=== PATIENT | male | born 1980 | race American Indian/Alaskan Native ===

== ENCOUNTER 2016-10-21 16:15 | Emergency (ER) | payer OTHER ==
--- NOTE | 2016-10-21 17:03 | Emergency Department Report ---
Chief Complaint: Fever Stated Complaint: LIGHT HEADED/ESTEFANI/BODY PAIN Time Seen by Provider: 10/21/16 17:01 - HPI History of Present Illness: PT states he feels like he has the flu x 3 days - ROS Review of Systems: + bodyaches -dysuria + darker urine - abd pain + productive cough - Exam Physical Exam: + wheeze to R no exudative pharyngitis MSE screening note: Focused history and physical exam performed. Due to findings the following was ordered: labs, xr ED Disposition for MSE Condition: Stable
[2016-10-21 17:05] VITALS: BP 124/91
[2016-10-21 20:01] LABS: Basophils % (Auto) 0.6 % (0.0-1.8); Eosinophils % (Auto) 1.8 % (0.0-4.3); Hematocrit 44.5 % (35.5-45.6); Hemoglobin 14.5 gm/dl (11.8-15.2); Mean Corpuscular HGB Conc 33 % (32-34); Mean Corpuscular Hemoglobin 29 pg (28-32); Mean Corpuscular Volume 89 fl (84-94); Platelet Count 239 K/mm3 (140-440); Red Blood Count 4.99 M/mm3 (3.65-5.03); Red Cell Distribution Width 12.5 % (13.2-15.2); White Blood Count 7.6 K/mm3 (4.5-11.0)
[2016-10-21] MEDS ORDERED: DELTASONE PO ONE (20:01)
[2016-10-21] MEDS ORDERED: TYLENOL/CODEINE PO ONE (20:01)
--- NOTE | 2016-10-21 20:05 | Emergency Department Report ---
HPI - General Chief Complaint: Upper Respiratory Infection Time Seen by Provider: 10/21/16 17:01 - HPI HPI: Pt is a 36-year-old male presents to the ED complaining of green productive cough. Chest congestion, generalized body aches 3 days. Patient states he feels like he has the flu has had symptoms for the past 3 days. Patient states his gun progressively worse and has generalized headaches worsened with coughing. He describes cough intermittently throughout the day. He denies fevers/nausea/vomiting/throat pain/runny nose/shortness of breath/ chest pain/abdominal pain/dysuria or any other symptoms ED Past Medical Hx - Past Medical History Previous Medical History?: No - Surgical History Past Surgical History?: Yes Additional Surgical History: Back surgery - Social History Smoking Status: Never Smoker Substance Use Type: None - Medications Home Medications: Home Medications Medication Instructions Recorded Confirmed Last Taken Type Guaifenesin/D-Methorphan Hb/PE 1 each PO Q8H #24 tablet 10/21/16 Unknown Rx [Mucinex Fast-Max Congest-Cough] Ibuprofen [Motrin] 800 mg PO Q8HR PRN #30 tablet 10/21/16 Unknown Rx Promethazine /Codeine 5 ml PO TID PRN #60 ml 10/21/16 Unknown Rx [Phenergan/Codeine 6.25-10 mg/5 ml] ED Review of Systems ROS: Stated complaint: LIGHT HEADED/ESTEFANI/BODY PAIN Other details as noted in HPI Constitutional: chills. denies: fever Eyes: denies: eye pain, eye discharge, vision change ENT: congestion. denies: ear pain, throat pain, dental pain, hearing loss, epistaxis Respiratory: cough. denies: shortness of breath, wheezing Cardiovascular: denies: chest pain, palpitations Endocrine: no symptoms reported Gastrointestinal: denies: abdominal pain, nausea, vomiting, diarrhea, constipation, hematemesis Genitourinary: denies: urgency, dysuria, frequency, hematuria, discharge Musculoskeletal: denies: back pain, joint swelling, arthralgia Skin: denies: rash, lesions Neurological: denies: headache, weakness, numbness, paresthesias, confusion Psychiatric: denies: anxiety, depression Hematological/Lymphatic: denies: easy bleeding, easy bruising Physical Exam - Physical Exam Vital Signs: Vital Signs 10/21/16 17:00 Temperature 98.5 F Pulse Rate 86 Respiratory 18 Rate Blood Pressure 124/91 O2 Sat by Pulse 98 Oximetry Physical Exam: GENERAL: Alert and oriented x3, no apparent distress, Normal Gait, atraumatic. HEAD: Head is normocephalic and a-traumatic. EYES: Extra ocular muscles are intact. Pupils are equal, round, and reactive to light and accommodation. EARS: symetrical, atraumatic, non tender, ear canal clear and moderate cerumen, tympanic membrance non inflamed. gross auditory nml bilaterally. NOSE: Nose symetrical, Nontender,Nares appeared normal. MOUTH:Mouth is well hydrated and without lesions. Tonsils nonerythematous or swollen, Uvula midline, Tongue not elevated. Mucous membranes are moist. Posterior pharynx clear, no exudate or lesions. Patent airways. NECK: Supple. Non edematous, No carotid bruits. No lymphadenopathy or thyromegaly. LUNGS: Symetrical with respiration, No wheezing, no rales or crackles, CTAB. HEART: S1, S2 present, regular rate and rhythm without murmur, no rubs, no gallops. ABDOMEN: No organomegaly was noted,Positive bowel sounds, soft, and non- distended. . Nontender to palpation on all Quadrants, NO CVA tenderness. SKIN: Warm and dry, No lesions, No ulceration or induration present. ED Course Vital Signs 10/21/16 17:00 Temperature 98.5 F Pulse Rate 86 Respiratory 18 Rate Blood Pressure 124/91 O2 Sat by Pulse 98 Oximetry ED Medical Decision Making - Lab Data Result diagrams: 10/21/16 19:50 10/21/16 19:50 - Radiology Data Radiology results: report reviewed, image reviewed FINAL REPORT EXAM: XR CHEST ROUTINE 2V HISTORY: productive cough TECHNIQUE: Two view chest PA and lateral PRIORS: None. FINDINGS: Cardiac and mediastinal contours are unremarkable. No focal pulmonary infiltrate is identified. No pleural fluid collection seen. Pulmonary vasculature is unremarkable. IMPRESSION: Negative two-view chest Transcribed By: ROSA MARIA Dictated By: LASHAUN DAVIS MD Electronically Authenticated By: LASHAUN DAVIS MD Signed Date/Time: 10/21/162034 - Medical Decision Making 36-year-old female male presents with upper respiratory infection ED course: Patient received Tylenol 3 Chest x-ray, CBC, BMP, urinalysis was ordered. All results negative is Discussed all findings with patient. Discussed the patient to follow up with primary care physician. Discussed adequate rest and proper increase fluids. Vital signs are normal patient is in no acute distress and easily agitated 3 and understands instructions given. Critical care attestation.: If time is entered above; I have spent that time in minutes in the direct care of this critically ill patient, excluding procedure time. ED Disposition Clinical Impression: URI (upper respiratory infection) Qualifiers: URI type: unspecified URI Qualified Code(s): J06.9 - Acute upper respiratory infection, unspecified Disposition: - TO HOME OR SELFCARE Is pt being admited?: No Does the pt Need Aspirin: No Condition: Stable Instructions: Upper Respiratory Infection (ED), Cold Symptoms (ED) Additional Instructions: Please drink plenty of water daily. take your medication as prescribed. Follow-up with your primary-care physician. Get adequate rest. URI last 7-14 days but will resolve Prescriptions: Guaifenesin/D-Methorphan Hb/PE [Mucinex Fast-Max Congest-Cough] 1 each PO Q8H # 24 tablet Ibuprofen [Motrin] 800 mg PO Q8HR PRN #30 tablet PRN Reason: Pain Promethazine /Codeine [Phenergan/Codeine 6.25-10 mg/5 ml] 5 ml PO TID PRN #60 ml PRN Reason: cough Referrals: PRIMARY CAREMD [Primary Care Provider] - 3-5 Days [facility] MD [Referring] - 3-5 Days [facility] [Outside] - 3-5 Days [facility] [Outside] - 3-5 Days Forms: Work/School Release Form(ED) Time of Disposition: 21:20
[2016-10-21 20:12] LABS: Anion Gap 15 mmol/L; Blood Urea Nitrogen 9 mg/dL (9-20); Carbon Dioxide 29 mmol/L (22-30); Chloride 103.1 mmol/L (98-107); Glucose 74 mg/dL (75-100); Potassium 4.6 mmol/L (3.6-5.0); Sodium 142 mmol/L (137-145)
[2016-10-21 20:22] LABS: Bilirubin,Urine NEG (Negative); Blood,Urine NEG (Negative); Ketones,Urine TR mg/dL (Negative); Leukocyte Esterase,Urine NEG (Negative); Mucus,Urine 3+ /HPF; Nitrite,Urine NEG (Negative); Protein,Urine <15 mg/dL mg/dL (Negative); Urobilinogen,Urine < 2.0 mg/dL (<2.0); WBC,Urine < 1.0 /HPF (0.0-6.0)
--- NOTE | 2016-10-21 20:40 | XRay Report ---
FINAL REPORT EXAM: XR CHEST ROUTINE 2V HISTORY: productive cough TECHNIQUE: Two view chest PA and lateral PRIORS: None. FINDINGS: Cardiac and mediastinal contours are unremarkable. No focal pulmonary infiltrate is identified. No pleural fluid collection seen. Pulmonary vasculature is unremarkable. IMPRESSION: Negative two-view chest
[2016-10-21] MEDS ORDERED: ROBITUSSIN PO ONE (21:00)
== END 2016-10-21 21:48 | disposition home or self-care (01) ==
LOC: ED 16:15
DX: J06.9 Acute upper respiratory infection, unspecified (principal)
CPT/HCPCS: 36415; 71020; 80048; 81001; 85025; 99284; J7512

== ENCOUNTER 2016-12-25 01:28 | Emergency (ER) | payer SELFPAY ==
[2016-12-25 01:52] VITALS: BP 117/74
== END 2016-12-25 04:13 | disposition left against medical advice (07) ==
LOC: ED 01:28
DX: M25.522 Pain in left elbow (principal); Z53.21 Procedure and treatment not carried out due to patient leaving prior to being seen by health care provider

== ENCOUNTER 2017-01-07 08:26 | Emergency (ER) | payer SELFPAY ==
[2017-01-07 08:43] VITALS: BP 128/87
--- NOTE | 2017-01-07 10:10 | XRay Report ---
LEFT TIBIA/FIBULA: History: Pain, injury. AP and lateral views of the left tibia/fibula demonstrate normal mineralization and contours for this patient's age. No destructive changes are noted and the adjacent soft tissues are normal. IMPRESSION: Normal left tibia/fibula.
--- NOTE | 2017-01-07 10:11 | XRay Report ---
LEFT ANKLE, 2 views: History: Pain, injury. Bone mineralization is normal. No acute osseous abnormality or joint pathology is identified. The soft tissues are unremarkable. IMPRESSION: Normal study.
[2017-01-07] MEDS ORDERED: MOTRIN PO ONE (11:35)
--- NOTE | 2017-01-07 14:44 | Emergency Department Report ---
Entered by JORGE HASTINGS, acting as scribe for PETTY AUGUST PA. ED Fall HPI - General Chief Complaint: Fall Stated Complaint: LT ANKEL/LT LEG PAIN /WC Time Seen by Provider: 01/07/17 11:12 Source: patient Mode of arrival: Ambulatory - History of Present Illness Initial Comments: 36 y/o male with no significant PMHx presents to the ED c/o a fall injury that occurred this morning at 04:00. 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 In the ED, patient c/o left ankle and leg pain, and left ankle swelling, but he denies numbness and tingling. Rates pain a 9/10 in severity, which he describes as aching in quality. Aggravated with weight bearing, walking, and movement, and alleviated with immobilization and rest. NKDA. COPELAND Complaint: fall Onset/Timin -: days(s) Time: 04:00 Fall From: standing When Fall Occurred: 4-6 hours [employer] Fall Witnessed: yes, by bystander Place Fall Occurred: work Loss of Consciousness: none Prolonged Down Time?: no Symptoms Prior to Fall: none Location - Extremities: Left: Leg, Ankle Severity: severe Severity scale (0 -10): 9 Quality: aching Context: other (fell in between a forklift and metal while standing) Associated Symptoms: denies. denies: headache, neck pain, numbness, weakness, chest paint, shortness of breath, abdominal pain, hematuria, unable to walk, lightheaded, vertigo, confusion - Related Data Previous Rx's Medication Instructions Recorded Last Taken Type Guaifenesin/D-Methorphan Hb/PE 1 each PO Q8H #24 tablet 10/21/16 Unknown Rx [Mucinex Fast-Max Congest-Cough] Promethazine /Codeine 5 ml PO TID PRN #60 ml 10/21/16 Unknown Rx [Phenergan/Codeine 6.25-10 mg/5 ml] Cyclobenzaprine [Flexeril] 10 mg PO QHS PRN #24 tablet 01/07/17 Unknown Rx Ibuprofen [Motrin 800 MG tab] 800 mg PO Q8HR PRN #30 tablet 01/07/17 Unknown Rx Allergies Allergy/AdvReac Type Severity Reaction Status Date / Time No Known Allergies Allergy Unverified 10/21/16 17:15 ED Review of Systems Comment: All other systems reviewed and negative Constitutional: denies: chills, fever Eyes: denies: eye pain, eye discharge, vision change ENT: denies: ear pain, throat pain Respiratory: denies: cough, shortness of breath, wheezing Cardiovascular: denies: chest pain, palpitations Endocrine: no symptoms reported Gastrointestinal: denies: abdominal pain, nausea, diarrhea Genitourinary: denies: urgency, dysuria Musculoskeletal: joint swelling (LT ankle), arthralgia (LT leg and ankle pain). denies: back pain, myalgia Skin: denies: rash, lesions Neurological: denies: headache, weakness, numbness, paresthesias ED Past Medical Hx - Past Medical History Previous Medical History?: No - Surgical History Past Surgical History?: Yes Additional Surgical History: Back surgery - Family History Family history: no significant - Social History Smoking Status: Never Smoker Substance Use Type: None - Medications Home Medications: Home Medications Medication Instructions Recorded Confirmed Last Taken Type Guaifenesin/D-Methorphan Hb/PE 1 each PO Q8H #24 tablet 10/21/16 Unknown Rx [Mucinex Fast-Max Congest-Cough] Promethazine /Codeine 5 ml PO TID PRN #60 ml 10/21/16 Unknown Rx [Phenergan/Codeine 6.25-10 mg/5 ml] Cyclobenzaprine [Flexeril] 10 mg PO QHS PRN #24 tablet 01/07/17 Unknown Rx Ibuprofen [Motrin 800 MG tab] 800 mg PO Q8HR PRN #30 tablet 01/07/17 Unknown Rx ED Physical Exam - General Limitations: No Limitations General appearance: alert, in no apparent distress - Head Head exam: Present: atraumatic, normocephalic - Eye Eye exam: Present: normal appearance, PERRL, EOMI Pupils: Present: normal accommodation - ENT ENT exam: Present: normal exam, mucous membranes moist, normal external ear exam - Neck Neck exam: Present: normal inspection, full ROM. Absent: tenderness, meningismus, lymphadenopathy - Respiratory Respiratory exam: Present: normal lung sounds bilaterally. Absent: respiratory distress, wheezes, rales, rhonchi, stridor, chest wall tenderness, accessory muscle use, decreased breath sounds - Cardiovascular Cardiovascular Exam: Present: regular rate, normal rhythm, normal heart sounds. Absent: systolic murmur, diastolic murmur, rubs, gallop - GI/Abdominal GI/Abdominal exam: Present: soft, normal bowel sounds. Absent: distended - Extremities Exam Extremities exam: Present: full ROM (painful LT ankle flexion and extension), tenderness (LT tib/fib and medial LT ankle), normal capillary refill. Absent: normal inspection, pedal edema, joint swelling, calf tenderness - Expanded Lower Extremity Exam Left Hip exam: Present: normal inspection, full ROM, external rotation, internal rotation, pelvic stability. Absent: tenderness, swelling, abrasion, laceration , ecchymosis, deformity, crepidus, dislocation, erythema, shortening Upper Leg exam: Present: normal inspection, full ROM. Absent: tenderness, swelling, abrasion, laceration, ecchymosis, deformity, crepidus, dislocation, erythema Knee exam: Present: normal inspection, full ROM, full knee extension. Absent: tenderness, swelling, abrasion, laceration, ecchymosis, deformity, crepidus, dislocation, erythema, effusion, pain w/ pronation/supination, posterior draw sign, pain/laxity with valgus, pain/laxity with varus Lower Leg exam: Present: full ROM, tenderness (tib/fib area). Absent: normal inspection, swelling, abrasion, laceration, ecchymosis, deformity, crepidus, dislocation, erythema, palpable cord, Marisol's sign Ankle exam: Present: full ROM (painful LT ankle flexion and extension), tenderness (medial aspect of LT ankle), swelling (mild), abrasion (minor dorsal aspect). Absent: normal inspection, laceration, ecchymosis, deformity, crepidus , dislocation, erythema, anterior draw sign Foot/Toe exam: Present: normal inspection, full ROM. Absent: tenderness, swelling, abrasion, laceration, ecchymosis, deformity, crepidus, dislocation, erythema, amputation, puncture wound, foreign body, calcaneal tenderness, tenderness at base of 5th metatarsal, nail avulsion, subungual hematoma Neuro vascular tendon exam: Present: no vascular compromise. Absent: pulse deficit, abnormal cap refill, motor deficit, sensory deficit, tendon deficit, extremity cold to touch, pallor, abnormal 2-point discrimination, decreased fine /light touch, foot drop, peroneal nerve deficit, significant pain with passive ROM of distal joint Gait: Positive: observed and limited by pain - Back Exam Back exam: Present: normal inspection, full ROM. Absent: tenderness - Neurological Exam Neurological exam: Present: alert, oriented X3, normal gait (limited due to left ankle pain) - Psychiatric Psychiatric exam: Present: normal affect, normal mood - Skin Skin exam: Present: warm, dry, intact. Absent: rash ED Course Vital Signs 01/07/17 08:37 Temperature 98.2 F Pulse Rate 90 Respiratory 18 Rate Blood Pressure 128/87 O2 Sat by Pulse 98 Oximetry ED Medical Decision Making - Medical Decision Making 36 year-old male presents with acute left ankle pain ED course: Patient given Motrin. X-ray taken of left ankle and left tib/fib X-rays shows normal left tib/fib and normal left ankle. Vital signs stable patient is in no acute or respiratory distress. Discussed findings with patient about diagnoses. Discussed treatment in ED with patient Discussed with patient to take prescribed medication as needed for pain, and to apply ice and heat to affected area Discussed with patient to follow up with PCP and new car get ready mechanic as referred, and to return to the ED if symptoms return or worsen. Patient states understanding and will follow instructions. Pt verbally states understanding and will comply to follow up. ED Disposition Clinical Impression: Pain in left cruz Disposition: TO HOME OR SELFCARE Is pt being admited?: No Does the pt Need Aspirin: No Condition: Stable Instructions: Arthralgia (ED), Ice Pack Application (ED) Prescriptions: Cyclobenzaprine [Flexeril] 10 mg PO QHS PRN #24 tablet PRN Reason: Muscle Spasm Ibuprofen [Motrin 800 MG tab] 800 mg PO Q8HR PRN #30 tablet PRN Reason: Pain Referrals: PRIMARY CARE,MD [Primary Care Provider] - 3-5 Days [facility] [Outside] - 3-5 Days [facility] [Outside] - 3-5 Days [facility] [Outside] - 3-5 Days Forms: Accompanied Note, Work/School Release Form(ED) Time of Disposition: 12:01 This documentation as recorded by the DARLING montes JASMINE,accurately reflects the service I personally performed and the decisions made by MARIANGEL galeas OYINLOLA A, PA.
== END 2017-01-07 12:42 | disposition home or self-care (01) ==
LOC: ED 08:26
DX: M79.605 Pain in left leg (principal)
CPT/HCPCS: 99283

== ENCOUNTER 2018-10-12 19:47 | Emergency (ER) | payer BC, OTHER ==
[2018-10-12 20:30] VITALS: BP 116/87
--- NOTE | 2018-10-12 20:38 | Emergency Department Report ---
Blank Doc - Documentation Documentation: This is a 37-year-old male that presents with lower back pain. This initial assessment/diagnostic orders/clinical plan/treatment(s) is/are subject to change based on patient's health status, clinical progression and re- assessment by fellow clinical providers in the ED. Further treatment and workup at subsequent clinical providers discretion. Patient/guardians urged not to elope from the ED as their condition may be serious if not clinically assessed and managed. Initial orders include: 1- Patient sent to [facility] for further evaluation and treatment
[2018-10-12] MEDS ORDERED: DECADRON IM ONE (22:25)
[2018-10-12] MEDS ORDERED: TORADOL IM ONE (22:25)
[2018-10-12] MEDS ORDERED: ZOFRAN ODT PO ONE (22:26)
[2018-10-12] MEDS ORDERED: PERCOCET 5/325 PO ONE (22:26)
--- NOTE | 2018-10-12 23:31 | Emergency Department Report ---
ED Back Pain/Injury HPI - General Chief Complaint: Back Pain/Injury Stated Complaint: BACK PAIN Time Seen by Provider: 10/12/18 20:38 Source: patient Limitations: No Limitations - History of Present Illness Initial Comments: Patient is alert and any old -[place] male with a history of chronic low back pain due to a previous injury 12 years ago at work and s/p lumbosacral kyphoplastic surgery and will present to the ED with complaint of acute exacerbation of his chronic low back pain for the last 3 months intermittently worse in the last 4 days. Patient states that he used to take Percocet 10 mg/325 mg but stopped taking these medications over 2 years ago. Patient states that the pain is persistent and edema to his lower extremities bilaterally. The patient states that he has recently been evaluated extensively by physical therapy and had an appointment with his primary care physician earlier today but was advised to continue the ED for pain medications. Patient denies urinary or bowel incontinence, hematuria, dysuria, urinary frequency and urgency, dizziness, fever, chills, nausea, vomiting, abdominal pain, traumatic injury, heavy lifting, saddle paresthesia or bilateral lower extremity weakness MD Complaint: back pain -: Gradual, year(s) (>5 years) Similar Symptoms Previously: Yes (chronic low back pain) Place: home Radiation: left leg, right leg Severity: severe Severity scale (0 -10): 7 Quality: sharp, aching Consistency: constant Improves With: none Worsens With: none Context: other (chronic lower back injury s/p surgery) Associated Symptoms: denies other symptoms. denies: confusion, weakness, numbness, difficulty walking, cough, difficulty urinating, diaphoresis, incontinence, abdominal pain, loss of appetite, nausea/vomiting, rash, seizure, shortness of breath Treatments Prior to Arrival: NSAIDS, prescription analgesics - Related Data Previous Rx's Medication Instructions Recorded Last Taken Type Guaifen/Dextromethorphan/PE 1 each PO Q8H #24 tablet 10/21/16 Unknown Rx [Mucinex Fast-Max Congest-Cough] Promethazine /Codeine 5 ml PO TID PRN #60 ml 10/21/16 Unknown Rx [Phenergan/Codeine 6.25-10 mg/5 ml] Cyclobenzaprine [Flexeril] 10 mg PO QHS PRN #24 tablet 01/07/17 Unknown Rx Ibuprofen [Motrin 800 MG tab] 800 mg PO Q8HR PRN #30 tablet 01/07/17 Unknown Rx Baclofen 20 mg PO Q8H PRN #30 tablet 10/12/18 Unknown Rx Gabapentin [Gralise] 300 mg PO Q12H PRN #30 tab.er.24h 10/12/18 Unknown Rx Naproxen [Naprosyn] 500 mg PO Q12H PRN #20 tablet 10/12/18 Unknown Rx Prednisone [predniSONE 10 mg 10 mg PO .TAPER #21 tab.ds.pk 10/12/18 Unknown Rx (6-Day Pack, 21 Tabs)] traMADol [Ultram] 50 mg PO Q6HR PRN #15 tablet 10/12/18 Unknown Rx Allergies Allergy/AdvReac Type Severity Reaction Status Date / Time No Known Allergies Allergy Unverified 10/21/16 17:15 ED Review of Systems ROS: Stated complaint: BACK PAIN Other details as noted in HPI Comment: All other systems reviewed and negative Constitutional: no symptoms reported, see HPI. denies: chills, diaphoresis, fever, malaise Eyes: as per HPI. denies: eye discharge, vision change ENT: as per HPI. denies: ear pain, throat pain, dental pain, hearing loss, epistaxis Respiratory: no symptoms reported, see HPI. denies: cough, orthopnea, shortness of breath, SOB with exertion, SOB at rest Cardiovascular: as per HPI. denies: chest pain, palpitations, dyspnea on exertion, orthopnea Endocrine: no symptoms reported, see HPI. denies: excessive sweating, flushing, intolerance to cold, intolerance to heat, increased hunger, increased thirst, increased urine, unexplained weight gain, unexplained weight loss Gastrointestinal: as per HPI. denies: abdominal pain, nausea, vomiting, diarrhea, constipation, melena Genitourinary: as per HPI. denies: urgency, dysuria, frequency, discharge, testicular pain, testicular mass Musculoskeletal: as per HPI, back pain. denies: joint swelling, arthralgia, myalgia Skin: as per HPI. denies: rash, lesions, change in color, change in hair/nails Neurological: as per HPI. denies: headache, weakness, numbness, paresthesias, confusion, abnormal gait, vertigo Psychiatric: as per HPI. denies: anxiety, depression, auditory hallucinations Hematological/Lymphatic: as per HPI ED Past Medical Hx - Past Medical History Previous Medical History?: Yes Additional medical history: recurrent back pain - Surgical History Additional Surgical History: Back surgery - Social History Smoking Status: Never Smoker Substance Use Type: None - Medications Home Medications: Home Medications Medication Instructions Recorded Confirmed Last Taken Type Guaifen/Dextromethorphan/PE 1 each PO Q8H #24 tablet 10/21/16 Unknown Rx [Mucinex Fast-Max Congest-Cough] Promethazine /Codeine 5 ml PO TID PRN #60 ml 10/21/16 Unknown Rx [Phenergan/Codeine 6.25-10 mg/5 ml] Cyclobenzaprine [Flexeril] 10 mg PO QHS PRN #24 tablet 01/07/17 Unknown Rx Ibuprofen [Motrin 800 MG tab] 800 mg PO Q8HR PRN #30 tablet 01/07/17 Unknown Rx Baclofen 20 mg PO Q8H PRN #30 tablet 10/12/18 Unknown Rx Gabapentin [Gralise] 300 mg PO Q12H PRN #30 tab.er.24h 10/12/18 Unknown Rx Naproxen [Naprosyn] 500 mg PO Q12H PRN #20 tablet 10/12/18 Unknown Rx Prednisone [predniSONE 10 mg 10 mg PO .TAPER #21 tab.ds.pk 10/12/18 Unknown Rx (6-Day Pack, 21 Tabs)] traMADol [Ultram] 50 mg PO Q6HR PRN #15 tablet 10/12/18 Unknown Rx ED Physical Exam - General Limitations: No Limitations General appearance: alert, in no apparent distress - Head Head exam: Present: atraumatic, normocephalic, normal inspection - Eye Eye exam: Present: normal appearance, PERRL, EOMI. Absent: scleral icterus, conjunctival injection, nystagmus, periorbital swelling, periorbital tenderness - ENT ENT exam: Present: normal exam, normal orophraynx, mucous membranes moist, TM's normal bilaterally, normal external ear exam - Neck Neck exam: Present: normal inspection, full ROM. Absent: tenderness, meningismus, lymphadenopathy, thyromegaly - Respiratory Respiratory exam: Present: normal lung sounds bilaterally. Absent: respiratory distress, wheezes, rhonchi, chest wall tenderness, accessory muscle use, decreased breath sounds - Cardiovascular Cardiovascular Exam: Present: regular rate, normal rhythm, normal heart sounds. Absent: bradycardia, tachycardia, systolic murmur, diastolic murmur - GI/Abdominal GI/Abdominal exam: Present: soft, normal bowel sounds. Absent: tenderness, guarding, hyperactive bowel sounds - Rectal Rectal exam: Present: deferred - Extremities Exam Extremities exam: Present: normal inspection, normal capillary refill - Back Exam Back exam: Present: normal inspection, tenderness, muscle spasm, paraspinal tenderness (palpable lumbosacral paraspinal musculoskeletal tenderness). Absent: full ROM, CVA tenderness (L), vertebral tenderness - Neurological Exam Neurological exam: Present: alert, oriented X3, CN II-XII intact, normal gait, reflexes normal - Psychiatric Psychiatric exam: Present: normal affect - Skin Skin exam: Present: warm, dry, intact, normal color ED Course Vital Signs 10/12/18 20:17 Temperature 98.7 F Pulse Rate 78 Respiratory 18 Rate Blood Pressure 116/87 O2 Sat by Pulse 98 Oximetry - Reevaluation(s) Reevaluation #1: 10/12/18 23:39 Patient is alert and oriented 3 and is not in distress with normal vital signs. Patient was treated for pain in the ED and discharged home on pain medications and advised to follow-up with his primary care physician in 5-7 days for referral to a pain clinic to manage his chronic pain. Patient otherwise advised to return to the ED immediately if symptoms get worse. ED Medical Decision Making - Medical Decision Making Patient is alert and oriented 3 and is not in distress with normal vital signs. Patient was treated for pain in the ED and discharged home on pain medications and advised to follow-up with his primary care physician in 5-7 days for referral to a pain clinic to manage his chronic pain. Patient otherwise advised to return to the ED immediately if symptoms get worse. - Differential Diagnosis chronic low back pain; lumbar radiculopathy, muscle spasm of back Critical care attestation.: If time is entered above; I have spent that time in minutes in the direct care of this critically ill patient, excluding procedure time. ED Disposition Clinical Impression: Spasm of muscle of lower back Chronic low back pain with bilateral sciatica Qualifiers: Back pain laterality: bilateral Qualified Code(s): M54.42 - Lumbago with sciatica, left side; M54.41 - Lumbago with sciatica, right side; G89.29 - Other chronic pain Disposition: DC-01 TO HOME OR SELFCARE Is pt being admited?: No Does the pt Need Aspirin: No Condition: Stable Instructions: Lumbar Radiculopathy (ED), Muscle Spasm (ED), Sciatica (ED), Chronic Back Pain (ED) Additional Instructions: Take medications with food, drink plenty of fluids and follow-up with your primary care physician for referral to a pain clinic for the management of your chronic back pain in 7-10 days. Prescriptions: Baclofen 20 mg PO Q8H PRN #30 tablet PRN Reason: Spasms Gabapentin [Gralise] 300 mg PO Q12H PRN #30 tab.er.24h PRN Reason: Pain , Severe (7-10) Naproxen [Naprosyn] 500 mg PO Q12H PRN #20 tablet PRN Reason: Pain , Severe (7-10) Prednisone [predniSONE 10 mg (6-Day Pack, 21 Tabs)] 10 mg PO .TAPER #21 tab.ds.pk traMADol [Ultram] 50 mg PO Q6HR PRN #15 tablet PRN Reason: Pain Referrals: [facility] [Primary Care Provider] - 3-5 Days Time of Disposition: 23:32 Print Language: POLISH
== END 2018-10-12 23:45 | disposition home or self-care (01) ==
LOC: ED 19:47
DX: M54.41 Lumbago with sciatica, right side (principal); M54.42 Lumbago with sciatica, left side; G89.29 Other chronic pain
CPT/HCPCS: 96372; 99282; J1100; J1885; Q0162